=== PATIENT | male | born 1995 | race Native Hawaiian/Other Pacific Islander ===

== ENCOUNTER 2020-06-11 20:19 | Emergency (ER) | payer OTHER ==
[~2020-06-11] VITALS: Ht 172.7 cm; Wt 99.8 kg
[2020-06-11 20:30] VITALS: BP 151/96; TEMP 99
== END 2020-06-11 21:48 | disposition home or self-care (01) ==
LOC: ED 20:19
DX: F07.81 Postconcussional syndrome (principal)
CPT/HCPCS: 80307; 99282; J1885

== ENCOUNTER 2020-07-06 09:48 | Outpatient (CLI) | payer OTHER, BC | END 2020-07-06 22:18 | disposition home or self-care (01) | LOC: RESP 09:48 | PROVIDERS: ATTEND Nurse Practitioner Primary Care | DX: R55 Syncope and collapse (principal) ==